=== PATIENT | female | born 1955 | race Caucasian/White ===

== ENCOUNTER 2018-02-14 06:55 | Day surgery (SDC) | payer OTHER ==
[2018-02-14 07:32] VITALS: BMI 38.3
[2018-02-14] MEDS ORDERED: LIDOCAINE VISCOUS 2% ORAL/TOP 20 ML UNIT-DOSE CUP ONE (08:28)
[2018-02-14 09:06] VITALS: TEMP 98.1
[2018-02-14 09:37] VITALS: BP 121/52; PULSE 77
--- NOTE | 2018-02-14 09:39 | SPEC ---
DATE OF OPERATION: 02/14/2018 SURGEON: Aleksander Angel MD PROCEDURE: Upper endoscopy/esophagogastroduodenoscopy. POSTOPERATIVE DIAGNOSIS: Normal gross anatomy prior to vertical sleeve gastrectomy. ESTIMATED BLOOD LOSS: Zero. ANESTHESIA: MAC. REASON FOR PROCEDURE: This is a 62-year-old female who is undergoing upper endoscopy/EGD prior to vertical sleeve gastrectomy. The risks and benefits of the procedure were explained. These included bleeding; infection; injury to surrounding structures including the oral cavity, esophagus, stomach, and small bowel; perforation; stricture; GA; DVT; PE as some of the complications. She understood and signed informed consent. DESCRIPTION OF PROCEDURE: Patient was placed in the left lateral decubitus position. MAC was given by Anesthesia. Timeout was performed. The endoscope was placed into the patient's mouth and advanced to the esophagus, GE junction, stomach, and up to the level and beyond the pylorus. No gross anatomical abnormalities were noted. No strictures or evidence of twisting or torsion was noted. The stomach was suctioned, the endoscope fully removed. The patient tolerated the procedure well, transferred to recovery room in stable condition. ALEKSANDER ANGEL M.D. [id number]
== END 2018-02-14 09:37 | disposition home or self-care (01) ==
LOC: JASU-ENDO 06:55
PROVIDERS: ATTEND Surgery
PROC: 0DJ08ZZ Inspection of Upper Intestinal Tract, Via Natural or Artificial Opening Endoscopic (ICD-10-PCS; principal; 2018-02-14 08:00)
DX: Z01.818 Encounter for other preprocedural examination (principal); E66.01 Morbid (severe) obesity due to excess calories

== ENCOUNTER 2018-04-12 08:24 | Inpatient (IN) | payer OTHER ==
[2018-04-04 15:25] VITALS: BMI 38.3
[2018-04-12] MEDS ORDERED: MIDAZOLAM HCL 2 MG/2 ML SINGLE DOSE VIAL ONE (10:18)
[2018-04-12] MEDS ORDERED: ROPIVACAINE HCL 0.5% 30ML VIAL ONE (10:18)
[2018-04-12] MEDS ORDERED: EPINEPHrine/PF 1 MG/1 ML (1:1,000) AMPULE ONE (10:18)
[2018-04-12] MEDS ORDERED: VANCOMYCIN 1,000 MG VIAL (RESTRICTED TO ID ONLY) ONE (10:45)
[2018-04-12] MEDS ORDERED: ceFAZolin SODIUM 1 GM VIAL ONE ×2 (11:04→13:56)
[2018-04-12] MEDS ORDERED: TRANEXAMIC ACID 1000 MG/10 ML VIAL ONE (11:04)
[2018-04-12] MEDS ORDERED: PROPOFOL 20 ML ONE ×7 (11:05→14:14)
[2018-04-12] MEDS ORDERED: ONDANSETRON 4 MG/2 ML VIAL ONE ×2 (11:45→15:28)
[2018-04-12] MEDS ORDERED: DEXAMETHASONE SOD PHOSPHATE 4 MG/1 ML VIAL ONE (11:45)
[2018-04-12] MEDS ORDERED: KETAMINE HCL 200 MG/20 ML VIAL ONE (13:34)
[2018-04-12] MEDS ORDERED: DEXMEDETOMIDINE HCL 200 MCG/2 ML IVPB ONE (13:50)
[2018-04-12] MEDS ORDERED: BENZOIN TINCTURE SWABSTICK TP ONE (14:36)
[2018-04-12] MEDS ORDERED: BENZOIN/ALOE VERA/STORAX/TOLU 58 ML BOTTLE ONE (14:38)
[2018-04-12] MEDS ORDERED: AMITRIPTYLINE HCL 25 MG TABLET (FP) PO PRN (14:40)
[2018-04-12] MEDS ORDERED: amLODIPine BESYLATE 5 MG TABLET (FP) PO PRN (14:40)
[2018-04-12] MEDS ORDERED: ONDANSETRON 8 MG TABLET (FP) PO PRN (14:44)
[2018-04-12] MEDS ORDERED: LACTATED RINGERS SOLUTION 1,000 ML/1,000 ML INFUS.BAG IV SCH (14:45)
--- NOTE | 2018-04-12 14:47 | PN ---
Progress Note (short form) - Note Progress Note: S/P R TKA POD #0 - Pain control. -DVT PPx: -Chemical: ASA 81 mg po BID x 6 weeks -Mechanical: MARY ELLEN's, SCD's -Incentive Spirometry. -PT/OT/Rehab, OOB. -WBAT RLE. -f/u am labs. -f/u post-op TOV. -Care per medical hospitalist team. -Discharge planning: f/u [facility] [place] office suspension cord tier for appointment: -Will follow. Denny Richmond MD (Orthopaedic Surgery)
[2018-04-12] MEDS ORDERED: MAGNESIUM HYDROX 2400MG/30ML ORAL SUSPENSION 30 ML CUP PO PRN (14:49)
[2018-04-12] MEDS ORDERED: MAG HYDROX/AL HYDROX/SIMETH 30 ML UNIT-DOSE CUP PO PRN (14:49)
[2018-04-12] MEDS ORDERED: oxyCODONE HCL 5 MG TABLET PO PRN (15:01)
[2018-04-12] MEDS ORDERED: ONDANSETRON 4 MG/2 ML VIAL IVPUSH PRN (15:01)
--- NOTE | 2018-04-12 15:15 | OP ---
Operative Note - Note: Operative Date: 04/12/18 Pre-Operative Diagnosis: Right hip osteoarthritis Operation: Right total hip replacement via direct superior approach Findings: Right hip osteoarthritis Implants: Deepwater. Cup - Trident II-Tritanium, 52mm. Poly - 36mm, neutral. Stem - Accolade II, #3, 127 deg NSA (high offset). Head - [employer]/Biolox , 36mm diameter, +5mm length Surgeon: Enoc Richmond Artifacts Conservator: Denny Richmond Anesthesiologist/SKI TOPPER: David Newell Anesthesia: Spinal Specimens Removed: Right femoral neck Estimated Blood Loss (mls): 200 Fluid Volume Replaced (mls): 1,000 (Crystalloid) Operative Report Dictated: Yes
[2018-04-12] MEDS ORDERED: ONDANSETRON 4 MG/2 ML VIAL IVPUSH ONE (15:25)
[2018-04-12] MEDS ORDERED: ACETAMINOPHEN 325 MG TABLET (FP) PO ONE (16:00)
--- NOTE | 2018-04-12 17:26 | CONSULT ---
Consultation: REQUESTING PROVIDER: Dr. Enoc Richmond CONSULT REQUEST: We have been asked to medically evaluate and manage this patient in the post-operative period. HISTORY OF PRESENT ILLNESS: 62 year-old female with a PMH significant for HTN and DJD s/p right total hip replacement today. REVIEW OF SYSTEMS: CONSTITUTIONAL: Absent: fever, chills, diaphoresis, generalized weakness, malaise, loss of appetite, weight change HEENT: Absent: rhinorrhea, nasal congestion, throat pain, throat swelling, difficulty swallowing, mouth swelling, ear pain, eye pain, visual changes CARDIOVASCULAR: Absent: chest pain, syncope, palpitations, irregular heart rate, lightheadedness , peripheral edema RESPIRATORY: Absent: cough, shortness of breath, dyspnea with exertion, orthopnea, wheezing, stridor, hemoptysis GASTROINTESTINAL: Absent: abdominal pain, abdominal distension, nausea, vomiting, diarrhea, constipation, melena, hematochezia GENITOURINARY: Absent: dysuria, frequency, urgency, hesitancy, hematuria, flank pain, genital pain MUSCULOSKELETAL: Absent: myalgia, arthralgia, joint swelling, back pain, neck pain SKIN: Absent: rash, itching, pallor HEMATOLOGIC/IMMUNOLOGIC: Absent: easy bleeding, easy bruising, lymphadenopathy, frequent infections ENDOCRINE: Absent: unexplained weight gain, unexplained weight loss, heat intolerance, cold intolerance NEUROLOGIC: Absent: headache, focal weakness or paresthesias, dizziness, unsteady gait, seizure, mental status changes, bladder or bowel incontinence PSYCHIATRIC: Absent: anxiety, depression, suicidal or homicidal ideation, hallucinations. PHYSICAL EXAMINATION Vital Signs - 24 hr 04/12/18 04/12/18 04/12/18 08:45 08:47 15:04 Temperature 99.6 F 97.7 F Pulse Rate 80 62 Respiratory 16 20 Rate Blood Pressure 141/77 106/69 O2 Sat by Pulse 98 97 Oximetry (%) 04/12/18 04/12/18 04/12/18 15:10 15:15 15:20 Temperature Pulse Rate 66 68 63 Respiratory 18 17 14 Rate Blood Pressure 119/75 113/52 L 107/55 L O2 Sat by Pulse 97 98 98 Oximetry (%) 04/12/18 04/12/18 04/12/18 15:35 15:50 16:05 Temperature Pulse Rate 66 68 62 Respiratory 14 12 13 Rate Blood Pressure 104/55 L 115/58 L 114/59 L O2 Sat by Pulse 98 98 99 Oximetry (%) 04/12/18 04/12/18 16:20 16:30 Temperature 97.7 F Pulse Rate 65 66 Respiratory 14 14 Rate Blood Pressure 114/55 L 106/55 L O2 Sat by Pulse 99 Oximetry (%) GENERAL: Awake, alert, and fully oriented, in no acute distress. HEAD: Normal with no signs of trauma. EYES: Pupils equal, round and reactive to light, extraocular movements intact, sclera anicteric, conjunctiva clear. No lid lag. EARS, NOSE, THROAT: Ears normal, nares patent, oropharynx clear without exudates. Moist mucous membranes. NECK: Normal range of motion, supple without lymphadenopathy, JVD, or masses. LUNGS: Breath sounds equal, clear to auscultation bilaterally. No wheezes, and no crackles. No accessory muscle use. HEART: Regular rate and rhythm, S1 and S2 without murmur, rub or gallop. ABDOMEN: Soft, nontender, not distended, UPPER EXTREMITIES: 2+ pulses, warm, well-perfused. No cyanosis. No clubbing. Cap refill <2 seconds. No peripheral edema. LOWER EXTREMITIES: 2+ pulses, warm, well-perfused. No calf tenderness. No peripheral edema; SCDs and TEDs, in place. Right lateral thigh surgical dressing c/d/i, no surrounding erythema, warmth, swelling; no drain; ice pack NEUROLOGICAL: Cranial nerves II-XII intact. Normal speech. Active Medications Generic Name Dose Route Start Last Admin Trade Name Freq PRN Reason Stop Dose Admin Acetaminophen 650 mg 04/12/18 15:15 Tylenol - PO 04/15/18 15:14 Q6H LIZETT Al Hydroxide/Mg Hydroxide 30 ml 04/12/18 14:49 Mylanta Oral Suspension - PO Q4H PRN DYSPEPSIA Amitriptyline HCl 75 mg 04/12/18 14:40 Elavil - PO HS PRN INSOMNIA Amlodipine Besylate 25 mg 04/12/18 14:40 Norvasc - PO HS PRN INSOMNIA Aspirin 81 mg 04/12/18 22:00 Ecotrin - PO BID LIZETT Fentanyl 50 mcg 04/12/18 15:01 Sublimaze Injection - IVPUSH [id number] PRN PAIN-PACU ORDER X 4 DOSES ONLY Cefazolin Sodium/Dextrose 2 gm in 50 mls @ 100 mls/hr 04/12/18 22:00 Ancef 2 Gm Premixed Ivpb - IVPB 04/13/18 02:29 Q8HIV LIZETT Lactated Ringer's 1,000 ml in 1,000 mls @ 125 mls/hr 04/12/18 14:45 Lactated Ringers Solution IV ASDIR [facility] Influenza Virus Vaccine Quadrival 60 mcg 04/12/18 08:54 Flulaval Quad [id number] IM 04/12/18 08:55 .ONCE ONE Magnesium Hydroxide 30 ml 04/12/18 14:49 Milk Of Magnesia - PO PRN PRN CONSTIPATION Metoprolol Succinate 100 mg 04/13/18 10:00 Toprol Xl - PO DAILY [facility] Ondansetron HCl 8 mg 04/12/18 14:44 Zofran - PO Q8H PRN NAUSEA Oxycodone HCl 5 mg 04/12/18 15:01 Roxicodone - PO Q3H PRN PAIN LEVEL 1-5 Oxycodone HCl 10 mg 04/12/18 15:01 Roxicodone - PO Q3H PRN PAIN LEVEL 6-10 Oxycodone HCl 10 mg 04/12/18 22:00 Oxycontin - PO 04/15/18 15:02 BID [facility] Pantoprazole Sodium 40 mg 04/13/18 10:00 Protonix - PO DAILY [facility] Senna/Docusate Sodium 2 tablet 04/12/18 22:00 Pericolace - PO BID [facility] ASSESSMENT/PLAN 62 year-old female with a PMH significant for HTN and DJD s/p right total hip replacement today. --POD #0 --perioperative antibiotics per surgery --pain management per surgery --ASA 81mg BID --protonix --bowel regimen --incentive spirometry --labs in am FEN Fluids: LR@125mL/hr Electrolytes: replete as indicated Nutrition: regular diet DVT prophylaxis: OOB, ambulation, SCDs, TEDs, ASA 81mg BID Physical therapy Dispo: We will continue to follow the patient. Thank you for this consultative opportunity. Visit type - Emergency Visit Emergency Visit: No - New Patient This patient is new to me today: Yes Date on this admission: 04/12/18 - Critical Care Critical Care patient: No
[2018-04-12] MEDS: oxyCODONE HCL 5 MG TABLET PO PRN ×2 (18:48→23:04)
[2018-04-12] MEDS: ACETAMINOPHEN 325 MG TABLET (FP) PO SCH ×2 (19:14→21:21)
[2018-04-12] MEDS: CEFAZOLIN 2 GM/D5W 2 GM/50 ML ML IVPB SCH (21:21)
[2018-04-12] MEDS: oxyCODONE HCL 10 MG SUSTAINED ACTING TABLET PO SCH (21:22)
[2018-04-12] MEDS: ASPIRIN COATED 81 MG TABLET.EC PO SCH (21:22)
[2018-04-12] MEDS: SENNOSIDES/DOCUSATE COMBO (SENNA PLUS) TABLET (UD) PO SCH (21:23)
[2018-04-13] MEDS: ACETAMINOPHEN 325 MG TABLET (FP) PO SCH ×4 (02:21→21:05)
[2018-04-13] MEDS: CEFAZOLIN 2 GM/D5W 2 GM/50 ML ML IVPB SCH (02:21)
[2018-04-13] MEDS: oxyCODONE HCL 5 MG TABLET PO PRN ×3 (02:22→19:09)
--- NOTE | 2018-04-13 07:31 | PN ---
Physical Exam: SUBJECTIVE: Patient seen and examined. Feels well, no complaints. OBJECTIVE: Vital Signs Period Temp Pulse Resp BP Sys/Bourgeois Pulse Ox Last 24 Hr 97.7 F-99.7 F 62-81 12-20 103-141/46-77 97-99 GENERAL: The patient is awake, alert, and fully oriented, in no acute distress. HEAD: Normal with no signs of trauma. EYES: PERRL, extraocular movements intact, sclera anicteric, conjunctiva clear. No ptosis. ENT: Ears normal, nares patent, oropharynx clear without exudates, moist mucous membranes. NECK: Trachea midline, full range of motion, supple. LUNGS: Breath sounds equal, clear to auscultation bilaterally, no wheezes, no crackles, no accessory muscle use. HEART: Regular rate and rhythm, S1, S2 without murmur, rub or gallop. ABDOMEN: Soft, nontender, nondistended, normoactive bowel sounds, no guarding, no rebound, no hepatosplenomegaly, no masses. EXTREMITIES: 2+ pulses, warm, well-perfused, no edema. Right hip dressing clean/ dry/intact, no hematoma. NEUROLOGICAL: Cranial nerves II through XII grossly intact. Normal speech, gait not observed. PSYCH: Normal mood, normal affect. SKIN: Warm, dry, normal turgor, no rashes or lesions noted Active Medications Generic Name Dose Route Start Last Admin Trade Name Freq PRN Reason Stop Dose Admin Acetaminophen 650 mg 04/12/18 15:15 04/13/18 02:21 Tylenol - PO 04/15/18 15:14 650 mg Q6H LIZETT Administration Al Hydroxide/Mg Hydroxide 30 ml 04/12/18 14:49 Mylanta Oral Suspension - PO Q4H PRN DYSPEPSIA Amlodipine Besylate 25 mg 04/12/18 14:40 Norvasc - PO HS PRN INSOMNIA Aspirin 81 mg 04/12/18 22:00 04/12/18 21:22 Ecotrin - PO 81 mg BID LIZETT Administration Fentanyl 50 mcg 04/12/18 15:01 Sublimaze Injection - IVPUSH [id number] PRN PAIN-PACU ORDER X 4 DOSES ONLY Lactated Ringer's 1,000 ml in 1,000 mls @ 125 mls/hr 04/12/18 14:45 04/12/18 19:12 Lactated Ringers Solution IV 125 mls/hr ASDIR LIZETT Administration Influenza Virus Vaccine Quadrival 60 mcg 04/12/18 08:54 Flulaval Quad [id number] IM 04/12/18 08:55 .ONCE ONE Magnesium Hydroxide 30 ml 04/12/18 14:49 Milk Of Magnesia - PO PRN PRN CONSTIPATION Metoprolol Succinate 100 mg 04/13/18 10:00 Toprol Xl - PO DAILY LIZETT Ondansetron HCl 8 mg 04/12/18 14:44 Zofran - PO Q8H PRN NAUSEA Oxycodone HCl 5 mg 04/12/18 15:01 Roxicodone - PO Q3H PRN PAIN LEVEL 1-5 Oxycodone HCl 10 mg 04/12/18 15:01 04/13/18 02:22 Roxicodone - PO 10 mg Q3H PRN Administration PAIN LEVEL 6-10 Oxycodone HCl 10 mg 04/12/18 22:00 04/12/18 21:22 Oxycontin - PO 04/15/18 15:02 10 mg BID LIZETT Administration Pantoprazole Sodium 40 mg 04/13/18 10:00 Protonix - PO DAILY [facility] Senna/Docusate Sodium 2 tablet 04/12/18 22:00 04/12/18 21:23 Pericolace - PO 2 tablet BID LIZETT Administration ASSESSMENT/PLAN: 62 year-old female with a PMH significant for HTN and DJD s/p right total hip replacement yesterday. --POD #1 --perioperative antibiotics per surgery --pain management per surgery --ASA 81mg BID --protonix --bowel regimen --incentive spirometry --labs in am FEN Electrolytes: replete as indicated Nutrition: regular diet DVT prophylaxis: OOB, ambulation, SCDs, TEDs, ASA 81mg BID Physical therapy Dispo: We will continue to follow the patient. Thank you for this consultative opportunity. Visit type - Emergency Visit Emergency Visit: No - New Patient This patient is new to me today: Yes Date on this admission: 04/13/18 - Critical Care Critical Care patient: No - Discharge Referral Referred to [facility] No
[2018-04-13 08:16] LABS: HEMATOCRIT 33.6 % (32.4-45.2); HEMOGLOBIN 11.2 GM/dl (10.7-15.3); MCH 30.5 pg (25.7-33.7); MCHC 33.4 g/dl (32.0-36.0); MEAN CELL VOLUME 91.5 fl (80-96); MEAN PLT VOLUME 8.9 fl (7.5-11.1); PLATELET COUNT 294 K/MM3 (134-434); RBC 3.67 M/mm3 (3.60-5.2); RDW 12.8 % (11.6-15.6); WHITE BLOOD COUNT 8.3 K/mm3 (4.0-10.8)
--- NOTE | 2018-04-13 08:21 | PN ---
Progress Note (short form) - Note Progress Note: POD #1 s/p right THR. Doing well. sitting in chair at bedside. C/o mild incisional tenderness. Adequate pain control with medications as ordered. No acute events over past 24 hours per RN notes. Tolerating PO diet. Voiding spontaneously. Using her incentive spirometer as directed. Denies n/v/f/c, CP, palpitations, SOB or SO. Last Vital Signs Temp Pulse Resp BP Pulse Ox 98.7 F 80 18 108/56 L 98 // 06:00 /09/22 06:00 /09/22 06:00 /09/22 06:00 04/13/18 06:00 Gen: nad LE: Right hip dressing c/d/i. No hematoma. LE with SCDs bilat/soft/non-tender. No edema Problem List - Problems (1) Degenerative joint disease of right hip Assessment/Plan: S/P L TEETEE POD #1 - Pain control. -DVT PPx: -Chemical: ASA 81 mg po BID x 6 weeks -Mechanical: MARY ELLEN's, SCD's -Incentive Spirometry. -PT/OT/Rehab, OOB. -WBAT RLE. -No Posterior hip precautions. -f/u am labs. -Care per medical hospitalist team. -Discharge planning: f/u [facility] [place] office onCall for appointment : Above plan discussed with Dr. Enoc Richmond and agrees. Code(s): M16.11 - UNILATERAL PRIMARY OSTEOARTHRITIS, RIGHT HIP
[2018-04-13 08:25] LABS: ANION GAP 7 MMOL/L (8-16); BLOOD UREA NITROGEN 17 mg/dl (7-18); CALCIUM 8.7 mg/dl (8.5-10); CHLORIDE 102 mmol/L (98-107); CO2 26 mmol/L (21-32); CREATININE 0.9 mg/dl (0.55-1.3); GLUCOSE,RANDOM 111 mg/dl (74-106); POTASSIUM 4.3 mmol/L (3.5-5.1); SODIUM 135 mmol/L (136-145)
[2018-04-13] MEDS ORDERED: ONDANSETRON 4 MG TABLET PO PRN (08:26)
--- NOTE | 2018-04-13 09:06 | OP ---
Date of Operation: 04/12/2018 Surgeon: Enoc Richmond M.D. Platform Attendant: Denny Richmond M.D., Manisha Valladares P.A.-C. Pre-Operative Diagnosis: End-stage primary osteoarthritis right hip. Post-Operative Diagnosis: End-stage primary osteoarthritis right hip. Surgical Procedure: Right total hip replacement via Direct Suprior approach. Anaesthesia: Spinal, block. Position: Left lateral decubitus. Incision: Direct superior. Estimated Blood Loss: 200cc. Intravenous Fluid: 1L crystalloid. Specimens: Right femoral head. Drains: None. Complications: None. Urine output: None. Bacteriology: None. Transfusions: None. Closure: #1 Vicryl, 3-0 Biosyn. Indications: The patient was indicated for a right total hip replacement in order to facilitate improved motion and mobilization, and to prevent the complications associated with a sedentary lifestyle. The patient was identified in the holding area by her armband. A long discussion was held with the patient (in the presence of the patients relative ) regarding the risks, benefits and alternatives of the above named procedure. Risks include but are not limited to: pain, bleeding, infection, damage to surrounding structures (including nerves, blood vessels, skin, ligaments, tendons and bone), wound complications, failure of hardware/implants/reduction, need for further surgery, blood clots, myocardial infarction, pulmonary embolism , cerebrovascular insult, anaesthesia complications, compartment syndrome, limb loss, limp, loss of function, and . Benefits as mentioned above. Alternatives include no surgery. All questions were answered. The patient understood and agreed to the procedure. Informed consent was obtained, witnessed and verified. The patients correct operative limb - that is the right lower extremity - was marked, and the patient was taken to the operating room after being seen by the anesthesia and nursing staff. Procedure: The patient was brought into the operating room, placed on the OR table and secured with a safety strap. Consent and the operative site were again verified with the patient and nursing and anaesthesia staff. Anaesthesia, IV antibiotics, and TXA were then administered without complication. A time out was done, led by me the attending surgeon. The patient was gently turned into the left lateral decubitus position. An axillary roll was placed. A Stulberg hip positioner with well-padded bolsters was used to secure the patient in the lateral decubitus position. The down arm was placed on a well-padded arm board. The up arm was brought across the patients body and placed on 2 pillows. Foam egg crates were placed under the down knee and ankle, and bony prominences were well padded. The operative site was then prepped and draped in the standard sterile fashion. Time out was again done and the case began. Operation: A standard Direct Superior surgical approach was utilized to access the hip joint. With a #10 blade, a skin incision was taken from the posterior-superior corner of the greater trochanter in a posterior-superior direction. This was approximately 10cm in length. Electrocautery was utilized to carry the deep dissection down to the level of the gluteus marvin fascia. Hemostasis was assured using electrocautery (bipolar and unipolar). The gluteus marvin fascia was incised, and the fibers of gluteus marvin were in line with the trajectory of the incision. This confirmed the accuracy of our planned incision based on palpated landmarks and surface anatomy. A Benjamin elevator was used to split the distal fibers of gluteus marvin, in line with the fibers, just proximal to their insertion into the iliotibial band. Great care was taken not to incise the iliotibial band. Gluteus marvin fibers were split proximally using the Benjamin elevator until reaching the apex of the wound. Again, hemostasis was assured. The bryanna-capsular fat pad was exposed utilizing curved handle bar retractors. The bryanna-capsular fat pad was excised off the inferior border of the gluteus medius muscle belly, exposing the insertion of the hip short external rotator muscle group. The piriformis tendon was identified and freed from adhesions to the capsule using a 90-degree clamp. This tendon was then released from its insertion using electrocautery. The tendon was tagged with a # 1 Ethibond suture and tied to the inferior aspect of the proximal wound apex. The tendon, thus, served as a sling to retract and protect the sciatic nerve. With the piriformis tendon reflected away from its insertion, the hip joint capsule was visualized. Electrocautery was used to perform a capsulotomy and synovial joint fluid was aspirated. Next, the superior leaflet of the capsule was elevated using a Benjamin elevator to create separation from the underlying labrum and also to create a plane for later placement of a supra-acetabular retractor. The labrum was excised using electrocautery. The hip was then gently dislocated. A standard femoral neck cut was made using an oscillating saw. A 3/4 " osteotome was delivered into the femoral head using mallet strikes. The femoral head was then removed. Anterior, inferior, and supra-acetabular retractors were placed to expose the acetabulum. The pulvinar was excised using electrocautery. Even sized reamers were used to prepare the acetabular bone bed. Healthy blushes of bleeding were observed from the reamed cancellous bone bed. Next, a size 52mm [place] Trident II-Tritanium cup was impacted into position, achieving excellent press-fit. A size 36mm neutral polyethylene liner was then impacted into the cup. Excellent placement of the polyethylene liner, and excellent press fit of the cup were confirmed. Next, attention was turned to femoral preparation. The anterior and supra-acetabular retractors were removed. The cut femoral neck was then exposed using the inferior acetabular retractor around the calcar, and a straight 90-degree retractor to retract gluteus medius. The box-cutter osteotome was used with a mallet to removed bone from the lateral femoral neck. An opening reamer was delivered by hand to find the femoral canal. A lateralizing reamer was used with power to lateralize the proximal entry into the canal, so as to avoid placing the stem into varus. The femoral bone bed was then prepared using broaches with gentle mallet strikes. The tibia was used as a goniometer with which to dial in approximately 5 degrees of stem anteversion. Trial components were assembled and the hip was reduced. The hip was taken through a full range of motion and proved stable throughout this range of motion, including at the extremes of positions of compromised. All trial femoral components were removed. Another 1g of IV Ancef was administered so that the bone bed would be rich with antibiotic at the time of seating of the femoral implant. A [place] Accolade II (127-degree NSA, high offset) #3 stem was then implanted using gentle mallet strikes, diligently matching the prepared degree of stem anteversion. With the stem fully seated, a 36mm diameter, +5mm length ceramic/Biolox femoral head was then selected and implanted. The hip was once again reduced, and taken through a full range of motion. Stability was once again assured. Leg length was satisfactory. The wounds were copiously irrigated, as they had been regularly throughout the case so as to keep the retracted tissues wet, and in order to flush out wound debris. The capsule was primarily repaired using #1 Vicryl sutures in simple interrupted fashion. The tagged piriformis tendon was released and tied to the posterior-lateral corner of the greater trochanter. The remaining wounds were again irrigated. Hemostasis was assured and the wound was closed primarily using #1 Vicryl sutures. A 3-0 Biosyn suture was used to perform a subcuticular wound closure. A sterile, compressive dressing was applied. The sponge and needle counts were correct at the end of the case and the attending was present and scrubbed throughout the case. The patient was then transferred into a supine position and onto the hospital bed. A standard AP-pelvis x-ray was taken, demonstrating good overall alignment with a well reduced, congruent hip. There was no evidence of subsidence, loosening, or bryanna-prosthetic fracture. The patient was then was then transferred to the recovery room without incident/complications and in stable condition, having tolerated the procedure well. MD SOFIA [id number] MTDD
[2018-04-13] MEDS: amLODIPine BESYLATE 5 MG TABLET (FP) PO SCH (09:07)
[2018-04-13] MEDS: ASPIRIN COATED 81 MG TABLET.EC PO SCH ×2 (09:07→21:06)
[2018-04-13] MEDS: SENNOSIDES/DOCUSATE COMBO (SENNA PLUS) TABLET (UD) PO SCH ×2 (09:07→21:06)
[2018-04-13] MEDS: PANTOPRAZOLE 40 MG TABLET (FP) PO SCH (09:08)
[2018-04-13] MEDS: oxyCODONE HCL 10 MG SUSTAINED ACTING TABLET PO SCH ×2 (09:09→21:06)
[2018-04-13] MEDS ORDERED: FLU VACCINE QUAD 60 MCG/0.5 ML (MDV 18-19) IM ONE (10:00)
[2018-04-13] MEDS ORDERED: MULTIVITAMINS (DAILY MVI) TABLET (FP) PO SCH (10:00)
--- NOTE | 2018-04-13 15:30 | PN ---
Progress Note (short form) - Note Progress Note: ANESTHESIA POSTOP 62 yo female POD#1 s/p TEETEE Patient sitting in chair in room in no distress. She reports pain is well controlled. Tolerating PO, and says she participated in PT. VSS, Afebrile Continue current care. Encouraged IS
[2018-04-14] MEDS: ACETAMINOPHEN 325 MG TABLET (FP) PO SCH ×2 (03:32→09:20)
[2018-04-14 05:21] VITALS: TEMP 99.7
[2018-04-14 06:50] VITALS: BP 121/56; PULSE 106
[2018-04-14 07:29] LABS: HEMATOCRIT 31.7 % (32.4-45.2); HEMOGLOBIN 10.5 GM/dl (10.7-15.3); MCH 30.1 pg (25.7-33.7); MCHC 33.1 g/dl (32.0-36.0); MEAN CELL VOLUME 90.9 fl (80-96); MEAN PLT VOLUME 8.7 fl (7.5-11.1); PLATELET COUNT 254 K/MM3 (134-434); RBC 3.49 M/mm3 (3.60-5.2); RDW 12.9 % (11.6-15.6); WHITE BLOOD COUNT 9.4 K/mm3 (4.0-10.8)
--- NOTE | 2018-04-14 08:37 | DS ---
"Physical Exam: SUBJECTIVE: Progress Note: POD #2 s/p right THR. Doing well. sitting in chair at bedside. C/o mild incisional tenderness. Adequate pain control with medications as ordered. No acute events over past 24 hours per RN notes. Tolerating PO diet and Voiding spontaneously. Using her incentive spirometer as directed. She has been OOB and ambulating with PT. Patient denies n/v/f/c, CP, palpitations, SOB or SO. OBJECTIVE: Vital Signs Period Temp Pulse Resp BP Sys/Bourgeois Pulse Ox Last 24 Hr 99.7 F-101.3 F 87-106 18-20 105-121/53-61 94-98 PHYSICAL EXAM GENERAL: The patient is awake, alert, and fully oriented, in no acute distress. HEAD: Normal with no signs of trauma. EYES: sclera anicteric, conjunctiva clear. NECK: Trachea midline, LUNGS: no audible wheezes, no accessory muscle use, unlabored resp on RA EXTREMITIES: Right hip dressing c/d/i. No hematoma, right thigh soft and supple. LE with SCDs bilat/soft/non-tender. No edema, 2+ pulses, warm, well- perfused, no edema. NEUROLOGICAL: Cranial nerves II through XII grossly intact. Normal speech, gait not observed. PSYCH: Normal mood, normal affect. SKIN: Warm, dry, normal turgor, no rashes or lesions noted. LABS Laboratory Results - last 24 hr 04/14/18 07:00 WBC 9.4 RBC 3.49 L Hgb 10.5 L Hct 31.7 L MCV 90.9 MCH 30.1 MCHC 33.1 RDW 12.9 Plt Count 254 MPV 8.7 HOSPITAL COURSE: Date of Admission:04/12/18 The patient was admitted to the Med-Surg Unit after an elective repair of their right hip OA. Now, s/p right TEETEE. An xray was obtained in the OR and confirmed hardware in good position with no fractures or dislocations. The day of surgery, the patient ambulated the hallways with assistance. Narcotic and non-narcotic pain management control was achieved with an oral and IV approach. Tammy-operative IV ABX were administered. DVT prophylaxis was achieved with SCDs, Aspirin and early ambulation. The patient ambulated with Physical Therapy and no services were recommended upon discharge. Narcotic scripts and or muscle relaxants were checked with [place] MINER[employer] TEACHER prior to escibe. The discharge instructions and an oral pain management plan were reviewed with the patient. All questions answered. Above plan discussed with Dr. Richmond and agreed. Date of Discharge: 04/14/18 Minutes to complete discharge: 25 Discharge Summary Reason For Visit: RIGHT OSTEOARTHRITIS Current Active Problems Degenerative joint disease of right hip (Acute) Condition: Good - Instructions Diet, Activity, Other Instructions: Dr. Richmond Discharge Instructions for Hip Replacement Post Operative Instructions Physical activity Physical Therapist will come to your home for the first 5 days. You will be set up with outpatient PT at your first post-operative visit. Use assistive devices for ambulation at all times. Weight bearing as tolerated on your surgical side. Wound care Leave your surgical dressing in place. Do not change the dressing until seen by your surgeon in the office. No baths or showers. Do not submerge your incision. Do not apply any ointments or lotions to your incision. Please call the office if your dressing is soiled/dirty or is falling off. Apply Graduated Compression Stockings (TEDS) to both lower extremities-remove daily for hygiene ONLY. Diet There are no dietary restrictions. Eat healthy, high-fiber foods. Drink 6 to 8 glasses of liquid each day. This will assist in keeping your bowels are regular. Pain management Any pain prescription medication ordered should be taken as prescribed for moderate to severe pain. Do not take additional Tylenol while taking Percocet. Posterior Hip Precautions: Do not cross the leg you had surgery on over your other leg. (Do not cross your legs.)Use an elevated toilet seat. Do not sit on low chairs or beds. Take Aspirin 81 mg two times a day for a total of 6 weeks to prevent blood clots. Call Dr. Richmond for any of the following: Severe pain not relieved by medication Fever of 101 or higher Excessive bleeding or drainage on dressing Inability to urinate If you experience chest pain or shortness of breath, please seek emergency care immediately. Please call the office at to confirm your post-op appointment for the week following surgery. [place] Prescription Monitoring report was requested by: Manisha Alarcon | Reference #: [id number] Disposition: HOME - Home Medications Comprehensive Discharge Medication List: Ambulatory Orders Amitriptyline HCl 75 mg PO HS PRN 02/14/18 Amlodipine Besylate 25 mg PO HS PRN 02/14/18 Ibuprofen/Famotidine [Duexis 800-26.6 mg Tablet] 1 each PO DAILY PRN 02/14/18 Metoprolol Succinate 100 mg PO DAILY 02/14/18 Tramadol HCl 50 mg PO DAILY PRN 02/14/18 Problem List - Problems (1) Degenerative joint disease of right hip Assessment/Plan: Assessment/Plan: S/P L TEETEE POD #2 - Pain control. -DVT PPx: -Chemical: ASA 81 mg po BID x 6 weeks -Mechanical: MARY ELLEN's, SCD's -Incentive Spirometry. -PT/OT/Rehab, OOB. -WBAT RLE. -No Posterior hip precautions. -Care per medical hospitalist team. -Discharge planning: Home today. - f/u [facility] [place] office onCall for appointment: Above plan discussed with Dr. Enoc Richmond and agrees. Code(s): M16.11 - UNILATERAL PRIMARY OSTEOARTHRITIS, RIGHT HIP This patient is new to me today: Yes Date on this admission: 04/14/18 Emergency Visit: No Critical Care patient: No - Discharge Referral Referred to [facility] No"
[2018-04-14] MEDS: PANTOPRAZOLE 40 MG TABLET (FP) PO SCH (09:21)
[2018-04-14] MEDS: SENNOSIDES/DOCUSATE COMBO (SENNA PLUS) TABLET (UD) PO SCH (09:21)
[2018-04-14] MEDS: amLODIPine BESYLATE 5 MG TABLET (FP) PO SCH (09:22)
[2018-04-14] MEDS: ASPIRIN COATED 81 MG TABLET.EC PO SCH (09:22)
[2018-04-14] MEDS: oxyCODONE HCL 10 MG SUSTAINED ACTING TABLET PO SCH (09:23)
--- NOTE | 2018-04-14 15:44 | PATH ---
Surgical Pathology Report Patient Name: LATRICE MORALES Med. Rec. #: [id number] /Age/Gender: 1955 (Age: 62) / F Account: [id number] [facility] Taken: 04/12/2018 Received: 04/12/2018 Reported: 04/14/2018 Physicians: Enoc Richmond M.D. Specimen(s) Received RIGHT FEMORAL HEAD Clinical History Right hip osteoarthritis Final Diagnosis FEMORAL HEAD, RIGHT, TOTAL HIP REPLACEMENT: DEGENERATIVE JOINT DISEASE. Electronically Signed Manisha Camilo M.D. Gross Description Received in formalin, labeled "right femoral head," is a 4.3 x 4.3 x 3.0 cm. portion of femoral head with a 2.3 cm in length portion of femoral neck attached. The margin of resection is jagged. The articular surface displays a 3.5 cm in greatest dimension area of eburnation. The remaining articular surface is scott-yellow and focally granular. The underlying trabecular bone is yellow and hard. A sales representative uniforms section is submitted in one cassette, following decalcification. 04/13/2018 [facility]04/13/2018
== END 2018-04-14 13:52 | disposition home or self-care (01) | DRG 470 ==
LOC: FM/S 08:24
PROVIDERS: ADMIT Orthopaedic Surgery Adult Reconstructive Orthopaedic Surgery; ATTEND Orthopaedic Surgery Adult Reconstructive Orthopaedic Surgery
PROC: 0SR904Z Replacement of Right Hip Joint with Ceramic on Polyethylene Synthetic Substitute, Open Approach (ICD-10-PCS; principal; 2018-04-12 11:02)
DX: M16.11 Unilateral primary osteoarthritis, right hip (principal)
CPT/HCPCS: 36415; 73502-TC-RT; 80048; 85027; 88304-TC; 88311-TC; 94760; 97116-GP; 97162-GP

== ENCOUNTER 2018-07-19 05:43 | Inpatient (IN) | payer OTHER ==
[2018-07-14 09:44] VITALS: BMI 38.3
--- NOTE | 2018-07-18 22:19 | PN ---
Progress Note (short form) - Note Progress Note: 62F s/p LEFT total hip replacement POD #0. -Pain control: per anaesthesia team. -DVT PPx: -Chemical: ASA 81mg PO BID x 6 weeks. -Mechanical: MARY ELLEN's, SCD's. -Incentive spirometry q15 min. -PT/OT/Rehab, OOB. -WBAT LLE. -Post-op Ancef x 2 doses. -f/u post-op TOV: 8 hours max. -f/u AM labs. -Diet as tolerated. -Care per medical hospitalist team. -Discharge planning: f/u [facility] [address] [facility] 07/27/2018; call for appointment . -Will follow. Enoc Richmond MD (Orthopaedic Surgery).
--- NOTE | 2018-07-18 22:23 | OP ---
Operative Note - Note: Operative Date: 07/19/18 Pre-Operative Diagnosis: Left hip DJD Operation: Left total hip replacement Implants: [employer]. Cup - 52mm Trident II-Tritanium. Poly - 36mm, neutral. Stem - Accolade II, #5, 127 deg NSA (high offset). Head - 36mm diameter, -5mm length, Delta Ceramic/Biolox Post-Operative Diagnosis: Same as Pre-op Surgeon: Enoc Richmond Resource Coordinator: Denny Richmond Anesthesiologist/PHARMACEUTICAL SCIENTIST: David Newell Anesthesia: Spinal Specimens Removed: Left femoral head Estimated Blood Loss (mls): 150 Fluid Volume Replaced (mls): 1,000 (Crystalloid) Operative Report Dictated: Yes
[~2018-07-19 05:43] MED LIST: CEFAZOLIN 2 GM in DEXTROSE 5%-WATER - 50 ML IVPB ONE; TRANEXAMIC ACID 1000 MG/10 ML VIAL IVPUSH ONE; VANCOMYCIN 1,000 MG in DEXTROSE 5%-WATER - 250 ML IVPB ONE
[2018-07-19] MEDS ORDERED: TRANEXAMIC ACID 1000 MG/10 ML VIAL IVPUSH ONE (06:23)
[2018-07-19] MEDS ORDERED: VANCOMYCIN 1,000 MG in DEXTROSE 5%-WATER - 250 ML IVPB ONE (06:23)
[2018-07-19] MEDS ORDERED: DEXMEDETOMIDINE HCL 200 MCG/2 ML IVPB ONE (07:00)
[2018-07-19] MEDS ORDERED: ONDANSETRON 4 MG/2 ML VIAL ONE ×2 (07:01→08:24)
[2018-07-19] MEDS ORDERED: EPINEPHrine/PF 1 MG/1 ML (1:1,000) AMPULE ONE (07:01)
[2018-07-19] MEDS ORDERED: MIDAZOLAM HCL 2 MG/2 ML SINGLE DOSE VIAL ONE ×2 (07:01→08:31)
[2018-07-19] MEDS ORDERED: DEXAMETHASONE SOD PHOSPHATE 4 MG/1 ML VIAL ONE ×2 (07:01→08:24)
[2018-07-19] MEDS ORDERED: ROPIVACAINE HCL 0.5% 30ML VIAL ONE (07:02)
--- NOTE | 2018-07-19 07:39 | HP ---
Admitting History and Physical - Admission History of Present Illness: The patient is a 62 yo female who presents today for Left hip replacement. She had Right hip replacment surgery this past April. She ambulates with a cane. Today she denies any fevers/sob/CP/urinary commplaints. Her pain level is 2/10 and she uses tylenol for pain and ultram when her donaldson symptoms increase. 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 No: Deep Vein Thrombosis Pulmonary: No: Asthma, Bronchitis Gastrointestinal: No: Constipation, Gastritis, GI Bleed Renal/: No: Renal Failure, Hematuria Heme/Onc: No: Bleeding Disorder - Past Surgical History Past Surgical History: Yes: (x4), Hysterectomy Additional Past Surgical History: right hip replacement 04/2018 exploratory lapartomy - Smoking History Smoking history: Never smoked Have you smoked in the past 12 months: No - Alcohol/Substance Use Hx Alcohol Use: No Home Medications - Allergies Allergies/Adverse Reactions: Allergies Allergy/AdvReac Type Severity Reaction Status Date / Time Penicillins Allergy Severe Rash Verified 07/14/18 09:33 - Home Medications Home Medications: Ambulatory Orders Metoprolol Succinate 100 mg PO DAILY 02/14/18 Tramadol HCl 50 mg PO DAILY PRN 02/14/18 Amlodipine Besylate [Norvasc -] 5 mg PO DAILY tablet 04/14/18 Acetaminophen 500 mg PO ASDIR PRN 07/14/18 Zolpidem Tartrate [Ambien Cr] 0.5 tab PO HS 07/14/18 Review of Systems - Review of Systems Constitutional: denies: Chills, Fever Neck: denies: Decreased ROM, Pain on Movement Cardiovascular: denies: Chest Pain, Edema, Palpitations Respiratory: denies: Cough, SOB Gastrointestinal: denies: Abdominal Pain, Constipation Genitourinary: denies: Burning, Hematuria Musculoskeletal: reports: Extremity Pain (left hip) Neurological: denies: Change in LOC, Headache, Numbness, Parasthesia Hematology/Lymphatic: denies: Easily Bruised, Excessive Bleeding Physical Examination Vital Signs: Vital Signs Temperature 98.7 F 07/19/18 06:24 Pulse Rate 74 07/19/18 06:24 Respiratory Rate 18 07/19/18 06:24 Blood Pressure 131/86 07/19/18 06:24 O2 Sat by Pulse Oximetry (%) Constitutional: Yes: Well Nourished, No Distress, Calm Eyes: Yes: Conjunctiva Clear. No: Sclera Icterus HENT: Yes: WNL, Atraumatic, Normocephalic Neck: Yes: WNL, Supple, Trachea Midline Cardiovascular: Yes: WNL, Regular Rate and Rhythm Respiratory: Yes: WNL, Regular, CTA Bilaterally Gastrointestinal: Yes: WNL, Normal Bowel Sounds, Soft Extremities: No: Calf Tenderness Edema: No Peripheral Pulses WNL: Yes Peripheral Pulses: Left Doralis Pedis: 2+, Right Dorsalis Pedis: 2+ Wound/Incision: Yes: Clean/Dry, Well Approximated Neurological: Yes: WNL, Alert, Oriented ...Motor Strength: WNL, LUE, LLE, RUE, RLE Psychiatric: Yes: WNL, Alert, Oriented Imaging - Results EKG: Report Reviewed (NSR rate 77) Other: Report Reviewed (pre-op labs reviewed starting H&H with platlets 426. Hemoglobin A1C 5.4.) Assessment/Plan 62 yo female with osteoarthritis of her Left hip for replacement today. IV abx at time of surgery DVT ppx with MARY ELLEN/SCDs, early ambulation and aspirin post-op Pain management with oral pain meds/regional block/spinal Betablocker taken this am D/w Dr. Richmond
[2018-07-19] MEDS ORDERED: VANCOMYCIN 1,000 MG VIAL (RESTRICTED TO ID ONLY) ONE (07:46)
[2018-07-19] MEDS ORDERED: TRANEXAMIC ACID 1000 MG/10 ML VIAL ONE (08:23)
[2018-07-19] MEDS ORDERED: ceFAZolin SODIUM 1 GM VIAL ONE ×3 (08:23→10:34)
[2018-07-19] MEDS ORDERED: ePHEDrine SULFATE 50 MG/1 ML AMPULE ONE (08:25)
[2018-07-19] MEDS ORDERED: SUCCINYLCHOLINE CHLORIDE 200 MG/10 ML VIAL ONE (08:29)
[2018-07-19] MEDS ORDERED: PHENYLEPHRINE HCL 10 MG/1 ML SINGLE DOSE VIAL ONE ×2 (08:31→08:32)
[2018-07-19] MEDS ORDERED: SODIUM CHLORIDE 0.9% P/F 10 ML VIAL IJ ONE (08:32)
[2018-07-19] MEDS ORDERED: PROPOFOL 20 ML ONE ×2 (09:12→09:57)
[2018-07-19] MEDS ORDERED: oxyCODONE HCL 5 MG TABLET PO PRN (10:12)
[2018-07-19] MEDS ORDERED: LACTATED RINGERS SOLUTION 1,000 ML IV SCH ×2 (10:15→11:15)
[2018-07-19] MEDS ORDERED: traMADol HCL 50 MG TABLET PO PRN (10:18)
[2018-07-19] MEDS ORDERED: BENZOIN TINCTURE SWABSTICK TP ONE (10:45)
[2018-07-19] MEDS ORDERED: MAGNESIUM HYDROX 2400MG/30ML ORAL SUSPENSION 30 ML CUP PO PRN (11:14)
[2018-07-19] MEDS ORDERED: ONDANSETRON 4 MG/2 ML VIAL IVPUSH PRN (11:14)
[2018-07-19] MEDS ORDERED: MAG HYDROX/AL HYDROX/SIMETH 30 ML UNIT-DOSE CUP PO PRN (11:14)
--- NOTE | 2018-07-19 11:49 | CONSULT ---
Consultation: REQUESTING PROVIDER: Dr. Enoc Richmond CONSULT REQUEST: We have been asked to medically follow this patient post- operatively. HISTORY OF PRESENT ILLNESS: 62 year-old female with a PMH significant for HTN, uterine cancer s/p hysterectomy (2015), and DJD s/p right total hip replacement on 04/12/18, now s/p left total hip arthroplasty earlier today. REVIEW OF SYSTEMS: CONSTITUTIONAL: Absent: fever, chills, diaphoresis, generalized weakness, malaise, loss of appetite, weight change HEENT: Absent: rhinorrhea, nasal congestion, throat pain, throat swelling, difficulty swallowing, mouth swelling, ear pain, eye pain, visual changes CARDIOVASCULAR: Absent: chest pain, syncope, palpitations, irregular heart rate, lightheadedness , peripheral edema RESPIRATORY: Absent: cough, shortness of breath, dyspnea with exertion, orthopnea, wheezing, stridor, hemoptysis GASTROINTESTINAL: Absent: abdominal pain, abdominal distension, nausea, vomiting, diarrhea, constipation, melena, hematochezia GENITOURINARY: Absent: dysuria, frequency, urgency, hesitancy, hematuria, flank pain, genital pain MUSCULOSKELETAL: Absent: myalgia, arthralgia, joint swelling, back pain, neck pain SKIN: Absent: rash, itching, pallor HEMATOLOGIC/IMMUNOLOGIC: Absent: easy bleeding, easy bruising, lymphadenopathy, frequent infections ENDOCRINE: Absent: unexplained weight gain, unexplained weight loss, heat intolerance, cold intolerance NEUROLOGIC: Absent: headache, focal weakness or paresthesias, dizziness, unsteady gait, seizure, mental status changes, bladder or bowel incontinence PSYCHIATRIC: Absent: anxiety, depression, suicidal or homicidal ideation, hallucinations. PHYSICAL EXAMINATION Vital Signs - 24 hr 07/19/18 06:24 Temperature 98.7 F Pulse Rate 74 Respiratory 18 Rate Blood Pressure 131/86 GENERAL: Awake, alert, and fully oriented, in no acute distress. HEAD: Normal with no signs of trauma. EYES: Pupils equal, round and reactive to light, extraocular movements intact, sclera anicteric, conjunctiva clear. No lid lag. EARS, NOSE, THROAT: Ears normal, nares patent, oropharynx clear without exudates. Moist mucous membranes. NECK: Normal range of motion, supple without lymphadenopathy, JVD, or masses. LUNGS: Breath sounds equal, clear to auscultation bilaterally. No wheezes, and no crackles. No accessory muscle use. HEART: Regular rate and rhythm, normal S1 and S2 without murmur, rub or gallop. ABDOMEN: Soft, nontender, not distended, normoactive bowel sounds, no guarding, no rebound, no masses. No hepatomegaly or splenomegaly. MUSCULOSKELETAL: Normal range of motion at all joints. No bony deformities or tenderness. No CVA tenderness. UPPER EXTREMITIES: 2+ pulses, warm, well-perfused. No cyanosis. No clubbing. Cap refill <2 seconds. No peripheral edema. LEFT LOWER EXTREMITY: Surgical dressing c/d/i, 2+ DP pulse, leg and foot are warm, well-perfused. No calf tenderness. No peripheral edema. NEUROLOGICAL: Cranial nerves II-XII intact. Normal speech. Active Medications Generic Name Dose Route Start Last Admin Trade Name Freq PRN Reason Stop Dose Admin Acetaminophen 650 mg 07/19/18 12:00 Tylenol - PO 07/22/18 11:59 Q6H LIZETT Al Hydroxide/Mg Hydroxide 30 ml 07/19/18 11:14 Mylanta Oral Suspension - PO Q4H PRN DYSPEPSIA Amlodipine Besylate 5 mg 07/20/18 10:00 Norvasc - PO DAILY LIZETT Aspirin 81 mg 07/19/18 22:00 Asa - PO BID LIZETT Lactated Ringer's 1,000 mls @ 125 mls/hr 07/19/18 10:15 Lactated Ringers Solution IV ASDIR LIZETT Cefazolin Sodium 2 gm/ 50 mls @ 200 mls/hr 07/19/18 18:00 Dextrose IVPB 07/20/18 02:14 Q8H-IV LIZETT Lactated Ringer's 1,000 mls @ 125 mls/hr 07/19/18 11:15 Lactated Ringers Solution IV 07/20/18 06:00 ASDIR LIZETT Magnesium Hydroxide 30 ml 07/19/18 11:14 Milk Of Magnesia - PO PRN PRN CONSTIPATION Metoprolol Succinate 100 mg 07/20/18 10:00 Toprol Xl - PO DAILY LIZETT Ondansetron HCl 4 mg 07/19/18 10:12 Zofran Injection IVPUSH Q6H PRN NAUSEA AND/OR VOMITING Ondansetron HCl 4 mg 07/19/18 11:14 Zofran Injection IVPUSH Q6H PRN NAUSEA Oxycodone HCl 5 mg 07/19/18 10:12 Roxicodone - PO Q3H PRN PAIN LEVEL 4 - 6 Oxycodone HCl 10 mg 07/19/18 10:12 Roxicodone - PO Q3H PRN PAIN LEVEL 7 - 10 Senna/Docusate Sodium tablet 07/19/18 22:00 Pericolace - PO BID LIZETT Tramadol HCl 50 mg 07/19/18 10:18 Ultram - PO Q4H PRN PAIN LEVEL 1 - 3 Pre op Hgb 11.2 BUN 15 Cr 0.8 Intra op LR x 1L Vanc x 1g Ancef x 3g ASSESSMENT/PLAN: 62 year-old female with a PMH significant for HTN, uterine cancer s/p hysterectomy (2014), and DJD s/p right total hip replacement on 04/12/18, now s/p left total hip arthroplasty. Left total hip arthroplasty --POD #0 --perioperative antibiotics per surgery --pain management per surgery --ASA 81mg BID --protonix --bowel regimen --incentive spirometry --no drains, no pearce FEN Fluids: LR@125mL/hr Electrolytes: replete as indicated Nutrition: regular diet DVT prophylaxis: OOB, ambulation, SCDs, TEDs, ASA 81mg BID Physical therapy Dispo: We will continue to follow the patient. Thank you for this consultative opportunity. Visit type - Emergency Visit Emergency Visit: No - New Patient This patient is new to me today: Yes Date on this admission: 07/19/18 - Critical Care Critical Care patient: No
[2018-07-19] MEDS ORDERED: ACETAMINOPHEN 325 MG TABLET (FP) PO ONE (12:00)
[2018-07-19] MEDS ORDERED: ACETAMINOPHEN 325 MG TABLET (FP) ONE (12:09)
--- NOTE | 2018-07-19 12:46 | OP ---
Date of Operation: 07/19/2018 Surgeon: Enoc Richmond M.D. [employer] Head: Denny Richmond M.D., Lora Vargas P.A.-C. Pre-Operative Diagnosis: Primary osteoarthritis left hip. Post-Operative Diagnosis: Primary osteoarthritis left hip. Surgical Procedure: Left total hip replacement via Direct Suprior approach. Findings: None. Anaesthesia: Spinal, block. Position: Right lateral decubitus. Incision: Direct superior. Estimated Blood Loss: 150cc. Intravenous Fluid: 1L crystalloid. Specimens: Left femoral head. Drains: None. Complications: None. Urine output: None. Bacteriology: None. Transfusions: None. Closure: #1 Vicryl, 3-0 Biosyn. Indications: The patient was indicated for a left total hip replacement in order to facilitate improved motion and mobilization, and to prevent the complications associated with a sedentary lifestyle. The patient was identified in the holding area by her armband. A long discussion was held with the patient (in the presence of the legal guardian/ patients relative) regarding the risks, benefits and alternatives of the above named procedure. Risks include but are not limited to: pain, bleeding, infection , damage to surrounding structures (including nerves, blood vessels, skin, ligaments, tendons and bone), wound complications, failure of hardware/implants/ reduction, need for further surgery, blood clots, myocardial infarction, pulmonary embolism, cerebrovascular insult, anaesthesia complications, compartment syndrome, limb loss, limp, loss of function, and . Benefits as mentioned above. Alternatives include no surgery. All questions were answered. The patient understood and agreed to the procedure. Informed consent was obtained, witnessed and verified. The patients correct operative limb - that is the left lower extremity - was marked, and the patient was taken to the operating room after being seen by the anesthesia and nursing staff. Procedure: The patient was brought into the operating room, placed on the OR table and secured with a safety strap. Consent and the operative site were again verified with the patient and nursing and anaesthesia staff. Anaesthesia, IV antibiotics, and TXA were then administered without complication. A time out was done, led by me the attending surgeon. The patient was gently turned into the right lateral decubitus position. An axillary roll was placed. A Stulberg hip positioner with well-padded bolsters was used to secure the patient in the lateral decubitus position. The down arm was placed on a well-padded arm board. The up arm was brought across the patients body and placed on 2 pillows. Foam egg crates were placed under the down knee and ankle, and bony prominences were well padded. The operative site was then prepped and draped in the standard sterile fashion. Time out was again done and the case began. Operation: A standard Direct Superior surgical approach was utilized to access the hip joint. With a #10 blade, a skin incision was taken from the posterior-superior corner of the greater trochanter in a posterior-superior direction. This was approximately 10cm in length. Electrocautery was utilized to carry the deep dissection down to the level of the gluteus marvin fascia. Hemostasis was assured using electrocautery (bipolar and unipolar). The gluteus marvin fascia was incised, and the fibers of gluteus marvin were in line with the trajectory of the incision. This confirmed the accuracy of our planned incision based on palpated landmarks and surface anatomy. A Benjamin elevator was used to split the distal fibers of gluteus marvin, in line with the fibers, just proximal to their insertion into the iliotibial band. Great care was taken not to incise the iliotibial band. Gluteus marvin fibers were split proximally using the Benjamin elevator until reaching the apex of the wound. Again, hemostasis was assured. The bryanna-capsular fat pad was exposed utilizing curved handle bar retractors. The bryanna-capsular fat pad was excised off the inferior border of the gluteus medius muscle belly, exposing the insertion of the hip short external rotator muscle group. The obturator internus tendon was identified and freed from adhesions to the capsule using a 90-degree clamp. This tendon was then released from its insertion using electrocautery. The tendon was tagged with a #2 Fiberwire suture and tied to the inferior aspect of the proximal wound apex. The tendon, thus, served as a sling to retract and protect the sciatic nerve. With the obturator internus tendon reflected away from its insertion, the hip joint capsule was visualized. Electrocautery was used to perform a capsulotomy and synovial joint fluid was aspirated. Next, the superior leaflet of the capsule was elevated using a Benjamin elevator to create separation from the underlying labrum and also to create a plane for later placement of a supra-acetabular retractor. The labrum was excised using electrocautery. The hip was then gently dislocated. A standard femoral neck cut was made using an oscillating saw. A Adolfo pin was drilled into the femoral head, which was then removed. Anterior, inferior, and supra-acetabular retractors were placed to expose the acetabulum. The pulvinar was excised using electrocautery. Even sized reamers were used to prepare the acetabular bone bed. Healthy blushes of bleeding were observed from the reamed cancellous bone bed. Next, a size 52mm Carleton Trident cup was impacted into position, achieving excellent press-fit. A size 36mm neutral polyethylene liner was then impacted into the cup. Excellent placement of the polyethylene liner, and excellent press fit of the cup were confirmed. Next, attention was turned to femoral preparation. The anterior and supra-acetabular retractors were removed. The cut femoral neck was then exposed using the inferior acetabular retractor around the calcar, and a straight 90-degree retractor to retract gluteus medius. The box-cutter osteotome was used with a mallet to removed bone from the lateral femoral neck. An opening reamer was delivered by hand to find the femoral canal. A lateralizing reamer was used with power to lateralize the proximal entry into the canal, so as to avoid placing the stem into varus. The femoral bone bed was then prepared using broaches with gentle mallet strikes. The tibia was used as a goniometer with which to dial in approximately 5 degrees of stem anteversion. Trial components were assembled and the hip was reduced. The hip was taken through a full range of motion and proved stable throughout this range of motion, including at the extremes of positions of compromised. All trial femoral components were removed. Another 1g of IV Ancef was administered so that the bone bed would be rich with antibiotic at the time of seating of the femoral implant. A Checo Accolade II (127-degree NSA, high offset) #5 stem was then implanted using gentle mallet strikes, diligently matching the prepared degree of stem anteversion. With the stem fully seated, a 36mm diameter, -5mm length ceramic/Biolox femoral head was then selected and implanted. The hip was once again reduced, and taken through a full range of motion. Stability was once again assured. Leg length was satisfactory. The wounds were copiously irrigated, as they had been regularly throughout the case so as to keep the retracted tissues wet, and in order to flush out wound debris. The capsule was primarily repaired using #1 Vicryl sutures in simple interrupted fashion. The tagged obturator internus tendon was released and was too tight to be tied to the posterior-lateral corner of the greater trochanter. The remaining wounds were again irrigated. Hemostasis was assured and the wound was closed primarily using #1 Vicryl sutures. A 3-0 Biosyn suture was used to perform a subcuticular wound closure. A sterile, compressive dressing was applied. The sponge and needle counts were correct at the end of the case and the attending was present and scrubbed throughout the case. The patient was then transferred into a supine position and onto the hospital bed. A standard AP-pelvis x-ray was taken, demonstrating good overall alignment with a well reduced, congruent hip. There was no evidence of subsidence, loosening, or bryanna-prosthetic fracture. The patient was then was then transferred to the recovery room without incident/complications and in stable condition, having tolerated the procedure well. MD SOFIA [id number] MTDD
[2018-07-19] MEDS: ACETAMINOPHEN 325 MG TABLET (FP) PO SCH ×3 (13:56→23:52)
[2018-07-19] MEDS: oxyCODONE HCL 5 MG TABLET PO PRN ×3 (13:59→22:02)
[2018-07-19] MEDS: CEFAZOLIN 2 GM/D5W 2 GM/50 ML ML IVPB SCH (18:03)
[2018-07-19] MEDS: ASPIRIN 81 MG CHEWABLE TABLETS PO SCH (21:28)
[2018-07-19] MEDS: SENNOSIDES/DOCUSATE COMBO (SENNA PLUS) TABLET (UD) PO SCH (21:28)
[2018-07-19] MEDS: ZOLPIDEM TARTRATE 5 MG TABLET PO PRN (21:58)
[2018-07-20] MEDS: CEFAZOLIN 2 GM/D5W 2 GM/50 ML ML IVPB SCH (01:50)
[2018-07-20] MEDS: oxyCODONE HCL 5 MG TABLET PO PRN (04:28)
[2018-07-20] MEDS: ONDANSETRON 4 MG/2 ML VIAL IVPUSH PRN (06:09)
[2018-07-20] MEDS: ACETAMINOPHEN 325 MG TABLET (FP) PO SCH ×3 (06:28→17:21)
[2018-07-20] MEDS: traMADol HCL 50 MG TABLET PO SCH ×4 (09:28→21:28)
[2018-07-20] MEDS: PANTOPRAZOLE 40 MG TABLET (FP) PO SCH (09:29)
[2018-07-20] MEDS: ASPIRIN 81 MG CHEWABLE TABLETS PO SCH ×2 (09:29→21:29)
[2018-07-20] MEDS: SENNOSIDES/DOCUSATE COMBO (SENNA PLUS) TABLET (UD) PO SCH ×2 (09:30→21:29)
[2018-07-20] MEDS: amLODIPine BESYLATE 5 MG TABLET (FP) PO SCH (09:30)
--- NOTE | 2018-07-20 10:34 | PN ---
Progress Note (short form) - Note Progress Note: POD#1 PT with some nausea after taking oxycodone this am. Otherwise no CP/SOB some pain in upper thigh. Vital Signs Period Temp Pulse Resp BP Sys/Bourgeois Pulse Ox Last 24 Hr 98 F-98.9 F 68-88 16-20 105-144/47-74 95-99 GEN: A&0x3, NAD oob to chair DV: RRR Lungs: CTA b/l Left hip: dressing c/d/i. Hip soft. LE: no calf tenderness or swelling noted b/l. MARY ELLEN/SCDs in place. CBC, BMP 05/16/19 10:49 05/16/19 10:49 A/p: 62 yo female s/p L hip replacement, POD#1 Pt doing well clinically Pain manamgnet with ultram/scheduled and oxycodone for breakthru pain DVT ppx with aspirin 81 mg BID/TEDs/ SCDs and ambulation Diet as tolerated D/w Dr. Richmond
[2018-07-20 11:08] LABS: HEMATOCRIT 30.8 % (32.4-45.2); HEMOGLOBIN 10.2 GM/dl (10.7-15.3); MCH 30.1 pg (25.7-33.7); MCHC 33.2 g/dl (32.0-36.0); MEAN CELL VOLUME 90.5 fl (80-96); MEAN PLT VOLUME 7.7 fl (7.5-11.1); PLATELET COUNT 316 K/MM3 (134-434); RDW 15.1 % (11.6-15.6); WHITE BLOOD COUNT 9.6 K/mm3 (4.0-10.8)
[2018-07-20 11:26] LABS: CALCIUM 8.8 mg/dl (8.5-10); CREATININE 0.9 mg/dl (0.55-1.3); MAGNESIUM 1.9 mg/dL (1.8-2.4); POTASSIUM 4.3 mmol/L (3.5-5.1)
--- NOTE | 2018-07-20 16:38 | PN ---
Progress Note (short form) - Note Progress Note: 62F POD1 s/p L THR under spinal anesthetic and PNB. Pt states that pain is well controlled and reports no anesthetic complications. AVSS. Continue current regimen.
[2018-07-20] MEDS: ZOLPIDEM TARTRATE 5 MG TABLET PO PRN (21:29)
[2018-07-21] MEDS: ACETAMINOPHEN 325 MG TABLET (FP) PO SCH ×3 (00:38→11:15)
[2018-07-21] MEDS: traMADol HCL 50 MG TABLET PO SCH ×4 (00:39→12:22)
[2018-07-21] MEDS: ONDANSETRON 4 MG/2 ML VIAL IVPUSH PRN (07:06)
[2018-07-21 08:07] LABS: HEMATOCRIT 29.7 % (32.4-45.2); HEMOGLOBIN 9.7 GM/dl (10.7-15.3); MCH 29.6 pg (25.7-33.7); MCHC 32.7 g/dl (32.0-36.0); MEAN CELL VOLUME 90.5 fl (80-96); MEAN PLT VOLUME 8.8 fl (7.5-11.1); PLATELET COUNT 299 K/MM3 (134-434); RBC 3.29 M/mm3 (3.60-5.2); RDW 14.8 % (11.6-15.6); WHITE BLOOD COUNT 9.9 K/mm3 (4.0-10.8)
--- NOTE | 2018-07-21 09:24 | DS ---
Physical Exam: SUBJECTIVE: Patient seen and examined this am. No complaints of CP/SOB. SLight nausea with oral pain meds(oxycodone). She took oxycodone x1 otherwise tamadol. OBJECTIVE: Vital Signs Temperature 97.9 F 07/21/18 06:00 Pulse Rate 86 07/21/18 06:00 Respiratory Rate 18 07/21/18 07:50 Blood Pressure 118/53 L 07/21/18 06:00 O2 Sat by Pulse Oximetry (%) 93 L 07/21/18 07:50 PHYSICAL EXAM GENERAL: The patient is awake, alert, and fully oriented, in no acute distress. LUNGS: Breath sounds equal, clear to auscultation bilaterally. HEART: Regular rate and rhythm. EXTREMITIES: no edema or calf tenderness b/l. L hip: dressing c/d/i. LABS CBC,CMP WBC 9.9 K/mm3 (4.0-10.8) 07/21/18 07:26 RBC 3.29 M/mm3 (3.60-5.2) L 07/21/18 07:26 Hgb 9.7 GM/dl (10.7-15.3) L 07/21/18 07:26 Hct 29.7 % (32.4-45.2) L 07/21/18 07:26 MCV 90.5 fl (80-96) 07/21/18 07:26 MCH 29.6 pg (25.7-33.7) 07/21/18 07:26 MCHC 32.7 g/dl (32.0-36.0) 07/21/18 07:26 RDW 14.8 % (11.6-15.6) 07/21/18 07:26 Plt Count 299 K/MM3 (134-434) 07/21/18 07:26 MPV 8.8 fl (7.5-11.1) 07/21/18 07:26 Sodium 140 mmol/L (136-145) 07/20/18 10:49 Potassium 4.3 mmol/L (3.5-5.1) 07/20/18 10:49 Chloride 103 mmol/L (98-107) 07/20/18 10:49 Carbon Dioxide 26 mmol/L (21-32) 07/20/18 10:49 Anion Gap 11 MMOL/L (8-16) 07/20/18 10:49 BUN 13 mg/dl (7-18) 07/20/18 10:49 Creatinine 0.9 mg/dl (0.55-1.3) 07/20/18 10:49 Est GFR (CKD-EPI)AfAm 79.98 07/20/18 10:49 Est GFR (CKD-EPI)NonAf 69.01 07/20/18 10:49 Random Glucose 105 mg/dl (74-106) 07/20/18 10:49 Calcium 8.8 mg/dl (8.5-10) 07/20/18 10:49 Magnesium 1.9 mg/dL (1.8-2.4) 07/20/18 10:49 HOSPITAL COURSE: The patient was admitted to the Med-Surg Unit after an elective repair of their left hip osteoarthritis. Now, s/p Left hip replacement. An xray was obtained in the OR and confirmed hardware placement in good position with no fractures or dislocations. The day of surgery, the patient ambulated the hallways with assistance. Narcotic and non-narcotic pain management control was achieved with an oral and IV approach. Tammy-operative IV ABX were administered. DVT prophylaxis was achieved with SCDs and early ambulation and aspirin 81 mg bid. The patient ambulated with Physical Therapy and no services were recommended upon discharge. Narcotic scripts and or muscle relaxants were checked with [employer] [employer] prior to escibe. The discharge instructions and an oral pain management plan were reviewed with the patient. All questions answered. Above plan discussed with Dr. Richmond and agreed. Date of Admission:07/19/18 Date of Discharge: 07/21/18 Minutes to complete discharge: 20 Visit type - Case Type Case Type: Scheduled - Emergency Emergency Visit: No - New patient This patient is new to me today: No
[2018-07-21] MEDS: amLODIPine BESYLATE 5 MG TABLET (FP) PO SCH (09:55)
[2018-07-21] MEDS: ASPIRIN 81 MG CHEWABLE TABLETS PO SCH (09:55)
[2018-07-21] MEDS: SENNOSIDES/DOCUSATE COMBO (SENNA PLUS) TABLET (UD) PO SCH (09:55)
[2018-07-21] MEDS: PANTOPRAZOLE 40 MG TABLET (FP) PO SCH (09:55)
[2018-07-21 14:27] VITALS: BP 124/57; PULSE 89; TEMP 98.5
--- NOTE | 2018-07-26 13:57 | PATH ---
Surgical Pathology Report Patient Name: LATRICE MORALES Med. Rec. #: [id number] /Age/Gender: 1955 (Age: 62) / F Account: [id number] Location: [facility] Taken: 07/19/2018 Received: 07/19/2018 Reported: 07/26/2018 Physicians: Enco Richmond M.D. Specimen(s) Received LEFT FEMORAL HEAD Clinical History Osteoarthritis, left hip Final Diagnosis FEMORAL HEAD, LEFT, TOTAL HIP REPLACEMENT: DEGENERATIVE JOINT DISEASE. Electronically Signed Manisha Camilo M.D. Gross Description Received in formalin, labeled "left femoral head" is a 4.5 x 4 x 3.5 cm femoral head. The articular surface is granular and shows areas of eburnation. The resection margin appears smooth. Deep Fat Fry Cook tissue is submitted in one cassette after decalcification. AE/07/21/2018 ebram/07/21/2018
== END 2018-07-21 14:20 | disposition home or self-care (01) | DRG 470 ==
LOC: FM/S 05:43
PROVIDERS: ADMIT Orthopaedic Surgery Adult Reconstructive Orthopaedic Surgery; ATTEND Orthopaedic Surgery Adult Reconstructive Orthopaedic Surgery
PROC: 0SRB02Z Replacement of Left Hip Joint with Metal on Polyethylene Synthetic Substitute, Open Approach (ICD-10-PCS; principal; 2018-07-18)
DX: M16.12 Unilateral primary osteoarthritis, left hip (principal); M24.652 Ankylosis, left hip; I10 Essential (primary) hypertension; Z96.641 Presence of right artificial hip joint; Z90.710 Acquired absence of both cervix and uterus
CPT/HCPCS: 36415; 73502-TC-LT-FY; 80048; 83735; 85027; 88305-TC; 88311-TC; 94760; 97116-GP; 97163-GP